=== PATIENT | female | born 1970 ===

== ENCOUNTER 2022-12-23 13:10 | Outpatient (CLI) | payer OTHER, SELFPAY ==
[2022-12-23 19:24] LABS: CEA 1.9 ng/mL (See Note)
[2022-12-24 10:21] LABS: CA 125 9 U/mL (<30)
[2022-12-24 12:05] LABS: CA 19-9 48 U/mL (<35)
== END 2022-12-23 13:11 | disposition home or self-care (01) ==
LOC: LBO 13:11
PROVIDERS: Visit Provider Obstetrics & Gynecology
DX: R19.00 Intra-abdominal and pelvic swelling, mass and lump, unspecified site (principal)
CPT/HCPCS: 36415; 86304; 82378; 86301